=== PATIENT | male | born 1955 ===

== ENCOUNTER 2017-10-04 13:28 | Day surgery (SDC) | payer BC ==
[~2017-10-04] VITALS: Ht 175.3 cm; Wt 84.6 kg
[~2017-10-04 13:28] MED LIST: GLUCOTROL10 MG PO; INVOKAMET3 PO; TRULICITY1.5 MG/0.5 SQ
[2017-10-04] MEDS ORDERED: ZOCOR 20MG20 MG PO (13:29)
[2017-10-04 14:04] VITALS: BP 110/67; PULSE 84; TEMP 97.9
[2017-10-04 16:00] VITALS: BP 112/70; PULSE 77; TEMP 97.9
[2017-10-04 16:30] VITALS: BP 117/63; PULSE 78
== END 2017-10-04 16:35 | disposition home or self-care (01) ==
LOC: SDCO 13:28
DX: K21.0 Gastro-esophageal reflux disease with esophagitis (principal); K25.3 Acute gastric ulcer without hemorrhage or perforation; K31.7 Polyp of stomach and duodenum; K29.30 Chronic superficial gastritis without bleeding; Z87.19 Personal history of other diseases of the digestive system; E11.9 Type 2 diabetes mellitus without complications; Z79.84 Long term (current) use of oral hypoglycemic drugs
CPT/HCPCS: J2250; J3010; J7030